=== PATIENT | male | born 1990 | race African-American/Black ===

== ENCOUNTER 2017-02-21 19:49 | Emergency (ER) | payer OTHER ==
[~2017-02-21] VITALS: Ht 200.7 cm; Wt 120.5 kg
[2017-02-21 19:52] VITALS: BP 158/95; PULSE 97; TEMP 98.4
[2017-02-21] MEDS ORDERED: NORCO 325 MG-51 TAB PO (20:45)
[2017-02-21] MEDS ORDERED: NAPROSYN500 MG PO (20:45)
== END 2017-02-21 21:00 | disposition home or self-care (01) ==
LOC: COL.ER 19:49
DX: S93.401A Sprain of unspecified ligament of right ankle, initial encounter (principal); X50.1XXA Overexertion from prolonged static or awkward postures, initial encounter; Y92.810 Car as the place of occurrence of the external cause

== ENCOUNTER 2018-03-01 17:16 | Emergency (ER) | payer OTHER ==
[~2018-03-01] VITALS: Ht 198.1 cm; Wt 122.7 kg
[~2018-03-01 17:16] MED LIST: NAPROSYN500 MG PO; NORCO 325 MG-51 TAB PO
[2018-03-01 17:25] VITALS: TEMP 97.9
[2018-03-01] MEDS ORDERED: FLEXERIL 1010 MG/TAB PO (18:09)
[2018-03-01] MEDS ORDERED: ASPERCREME1 EACH TP (18:09)
[2018-03-01 19:08] VITALS: BP 120/79; PULSE 76
== END 2018-03-01 19:09 | disposition home or self-care (01) ==
LOC: COL.ER 17:16
DX: M54.5 Low back pain (principal); X50.0XXA Overexertion from strenuous movement or load, initial encounter; F17.210 Nicotine dependence, cigarettes, uncomplicated

== ENCOUNTER 2018-11-21 09:54 | Outpatient (RCR) | payer OTHER ==
[~2018-11-21 09:54] MED LIST changes: +ASPERCREME1 EACH TP; +FLEXERIL 1010 MG/TAB PO
== END 2019-01-18 | disposition home or self-care (01) ==
LOC: WSOH
DX: S39.012A Strain of muscle, fascia and tendon of lower back, initial encounter (principal); W01.0XXA Fall on same level from slipping, tripping and stumbling without subsequent striking against object, initial encounter; Y93.F2 Activity, caregiving, lifting; Y92.59 Other trade areas as the place of occurrence of the external cause; Y99.0 Civilian activity done for income or pay; Z87.891 Personal history of nicotine dependence

== ENCOUNTER 2019-04-19 14:31 | Emergency (ER) | payer SELFPAY ==
[~2019-04-19] VITALS: Ht 200.7 cm; Wt 131.8 kg
[2019-04-19 14:58] VITALS: BP 137/87; TEMP 98.4
[2019-04-19] MEDS ORDERED: MOTRIN 800800 MG/TAB PO (16:34)
[2019-04-19 16:54] VITALS: PULSE 88
== END 2019-04-19 16:55 | disposition home or self-care (01) ==
LOC: COL.ER 14:31
DX: S93.501A Unspecified sprain of right great toe, initial encounter (principal); X50.9XXA Other and unspecified overexertion or strenuous movements or postures, initial encounter; Y92.59 Other trade areas as the place of occurrence of the external cause

== ENCOUNTER 2019-05-28 10:24 | Outpatient (RCR) | payer OTHER ==
[~2019-05-28 10:24] MED LIST changes: +MOTRIN 800800 MG/TAB PO
== END 2019-05-31 07:57 | disposition home or self-care (01) ==
LOC: WSOH 10:24
DX: S96.911A Strain of unspecified muscle and tendon at ankle and foot level, right foot, initial encounter (principal); W01.0XXA Fall on same level from slipping, tripping and stumbling without subsequent striking against object, initial encounter; Y93.01 Activity, walking, marching and hiking; Y92.59 Other trade areas as the place of occurrence of the external cause; Y99.0 Civilian activity done for income or pay; F17.210 Nicotine dependence, cigarettes, uncomplicated